=== PATIENT | male | born 1990 | race African-American/Black ===

== ENCOUNTER 2020-07-21 06:20 | Emergency (ER) | payer SELFPAY ==
[2020-07-21] MEDS ORDERED: NORMAL SALINE 1000 ML 1,000 ML IV ONE (06:36)
--- NOTE | 2020-07-21 06:38 | ER Document Report ---
ED Medical Screen (RME) - General Stated Complaint: INTOXICATION Time Seen by Provider: 07/21/20 06:32 Notes: 30-year-old male chief complaint of alcohol intoxication from drinking too much moonshine. Reportedly patient has been drinking since 10 PM last night and star mi passing out although there is no fall reported injury. EMS reports girlfriend called. Patient denies any complaints other than the intoxication, he states he "normally does not drink very much". He states he smokes marijuana but denies recreational drugs otherwise, denies any daily medications or medical history. No other complaints reported except he vomited a couple of times. Received Zofran and LR bolus from EMS. TRAVEL OUTSIDE OF THE [place] IN LAST 30 DAYS: No - Related Data Allergies/Adverse Reactions: No Known Allergies Allergy (Verified 01/30/15 13:21) Past Medical History - Immunizations Hx Diphtheria, Pertussis, Tetanus Vaccination: Yes Physical Exam - Vital signs Vitals: Temp Pulse Resp BP Pulse Ox 97.6 F 72 16 108/94 H 100 07/21/20 06:34 07/21/20 06:34 07/21/20 06:34 07/21/20 06:34 07/21/20 06:34 - General General appearance: Other - Patient smells of alcohol, drowsy, slurring speech, appears intoxicated but is still responsive and cooperative - Neurological Cognition: Inattentive Orientation: AAOx4. No: Disoriented to person, Disoriented to place, Disoriented to time, Disoriented to events [place]vin Coma Scale Eye Opening: Spontaneous [place] Coma Scale Verbal: Oriented [place]vin Coma Scale Motor: Obeys Commands Olvin Coma Scale Total: 15 Course - Re-evaluation Re-evalutation: I have greeted and performed a rapid initial assessment of this patient. A comprehensive ED assessment and evaluation of the patient, analysis of test results and completion of the medical decision making process will be conducted by additional ED providers. - Vital Signs Vital signs: Temp Pulse Resp BP Pulse Ox 97.6 F 72 16 108/94 H 100 07/21/20 06:34 07/21/20 06:34 07/21/20 06:34 07/21/20 06:34 07/21/20 06:34
[2020-07-21 07:14] LABS: ALBUMIN 4.6 g/dL (3.5-5.0); ALKALINE PHOSPHATASE 66 U/L (38-126); ANION GAP 14 (5-19); ASPARTATE AMINO TRANSFERASE 36 U/L (17-59); BILIRUBIN,DIRECT 0.1 mg/dL (0.0-0.4); BILIRUBIN,TOTAL 0.5 mg/dL (0.2-1.3); BLOOD UREA NITROGEN 15 mg/dL (7-20); CALCIUM 9.4 mg/dL (8.4-10.2); CARBON DIOXIDE 22 mmol/L (22-30); CHLORIDE 107 mmol/L (98-107); GLUCOSE 135 mg/dL (75-110); POTASSIUM 3.6 mmol/L (3.6-5.0); TOTAL PROTEIN 7.9 g/dL (6.3-8.2)
[2020-07-21 07:28] VITALS: BP 125/94
[2020-07-21] MEDS ORDERED: DEXTROSE 5%-LACTATED RINGERS 1,000 ML IV ONE (08:35)
[2020-07-21] MEDS ORDERED: METOCLOPRAMIDE HCL INJ/PF 10 MG/2 ML SDV IV ONE (08:37)
[2020-07-21] MEDS ORDERED: PANTOPRAZOLE SODIUM 40 MG VIAL IV ONE (08:37)
[2020-07-21 08:38] LABS: URINE AMPHETAMINES SCREEN NEGATIVE; URINE BARBITURATES SCREEN NEGATIVE; URINE BENZODIAZEPINES SCREEN NEGATIVE; URINE COCAINE SCREEN NEGATIVE; URINE METHADONE SCREEN NEGATIVE; URINE PHENCYCLIDINE SCREEN NEGATIVE
[2020-07-21 08:39] LABS: URINE MARIJUANA (THC) SCREEN UNCONFIRMED POSITIVE
[2020-07-21 08:49] LABS: ABSOLUTE LYMPHOCYTES (AUTO) 2.3 10^3/uL (0.5-4.7); ABSOLUTE MONOCYTES (AUTO) 0.6 10^3/uL (0.1-1.4); ABSOLUTE NEUT (AUTO) 6.8 10^3/uL (1.7-8.2); BASOPHILS % (AUTO) 0.3 % (0-2); EOSINOPHILS % (AUTO) 0.4 % (0-6); HEMATOCRIT 41.4 % (37.9-51.0); LYMPHOCYTES % (AUTO) 23.3 % (13-45); MEAN CORPUSCULAR HEMOGLOBIN 30.4 pg (27.0-33.4); MEAN CORPUSCULAR HGB CONC 33.7 g/dL (32.0-36.0); MEAN CORPUSCULAR VOLUME 90 fl (80-97); MONOCYTES % (AUTO) 6.3 % (3-13); PLATELET COUNT 183 10^3/uL (150-450); RED CELL DISTRIBUTION WIDTH 14.7 % (11.5-14.0); SEGMENTED NEUTROPHILS % (AUTO) 69.7 % (42-78); TOTAL CELLS COUNTED % (AUTO) 100 %; WHITE BLOOD COUNT 9.8 10^3/uL (4.0-10.5)
--- NOTE | 2020-07-21 10:20 | ER Document Report ---
Entered by GEORGE SEO SCRIBE 07/21/20 0815 Acting as scribe for:ABRAHAN NOVOA MD ED Substance Abuse / Acc. OD - General Chief Complaint: ETOH Abuse Stated Complaint: INTOXICATION Time Seen by Provider: 07/21/20 06:32 Mode of Arrival: Medic Information source: Patient, Emergency Med Personnel Notes: This 30 year old male patient presents to the ED via EMS with complaints of acute alcohol intoxication. Girlfriend at bedside reports that the patient drank moonshine around 2200 last night and had an episode of "pinkish-red phlemy" emesis at home. Patient states that he does not drink often. He reports a "stomach ache," but denies any other complaints. He received 8 mg Zofran and 500 ml bolus of LR via EMS. TRAVEL OUTSIDE OF THE [place] IN LAST 30 DAYS: No - Related Data Allergies/Adverse Reactions: No Known Allergies Allergy (Verified 01/30/15 13:21) Past Medical History - General Information source: Patient - Social History Smoking Status: Smoker,Current Status Unk Smoking Education Provided: No Frequency of alcohol use: Occasional Drug Abuse: Marijuana Family History: Reviewed & Not Pertinent - Immunizations Hx Diphtheria, Pertussis, Tetanus Vaccination: Yes Review of Systems - Review of Systems Constitutional: See HPI EENT: No symptoms reported Cardiovascular: No symptoms reported Respiratory: No symptoms reported Gastrointestinal: See HPI Genitourinary: No symptoms reported Male Genitourinary: No symptoms reported Musculoskeletal: No symptoms reported Skin: No symptoms reported Hematologic/Lymphatic: No symptoms reported Neurological/Psychological: No symptoms reported -: Yes All other systems reviewed and negative Physical Exam - Vital signs Vitals: Resp BP Pulse Ox 17 108/94 H 98 07/21/20 06:26 07/21/20 06:26 07/21/20 06:26 - Notes Notes: Patient is awake, alert, talking, and not actively vomiting; however, he is refusing to be examined at this time. Physical exam is therefore unobtainable. Course - Re-evaluation Re-evalutation: 07/21/20 10:13 Patient is awake talking not showing any signs of distress at this time. - Vital Signs Vital signs: Temp Pulse Resp BP Pulse Ox 97.6 F 72 20 125/94 H 100 07/21/20 06:34 07/21/20 06:34 07/21/20 07:00 07/21/20 07:00 07/21/20 07:00 07/21/20 10:14 Vital signs are stable however diastolic hypertension noted at 94. - Laboratory Result Diagrams: 07/21/20 07:20 07/21/20 06:35 Laboratory results interpreted by me: 07/21/20 07/21/20 06:35 07:20 RDW 14.7 H Glucose 135 H ALT 52 H 07/21/20 10:14 07/21/20 07:20 07/21/20 06:35 MCV 90 fl (80-97) 07/21/20 07:20 MCH 30.4 pg (27.0-33.4) 07/21/20 07:20 MCHC 33.7 g/dL (32.0-36.0) 07/21/20 07:20 RDW 14.7 % (11.5-14.0) H 07/21/20 07:20 Seg Neutrophils % 69.7 % (42-78) 07/21/20 07:20 Chloride 107 mmol/L (98-107) 07/21/20 06:35 Carbon Dioxide 22 mmol/L (22-30) 07/21/20 06:35 Anion Gap 14 (5-19) 07/21/20 06:35 Est GFR ( Amer) > 60 (>60) 07/21/20 06:35 Glucose 135 mg/dL (75-110) H 07/21/20 06:35 Calcium 9.4 mg/dL (8.4-10.2) 07/21/20 06:35 Magnesium 2.1 mg/dL (1.6-2.3) 07/21/20 07:20 Total Bilirubin 0.5 mg/dL (0.2-1.3) 07/21/20 06:35 AST 36 U/L (17-59) 07/21/20 06:35 Alkaline Phosphatase 66 U/L (38-126) 07/21/20 06:35 Total Protein 7.9 g/dL (6.3-8.2) 07/21/20 06:35 Albumin 4.6 g/dL (3.5-5.0) 07/21/20 06:35 Laboratory results shows an alcohol level in the 90s, and positive for marijuana on the urine drug screen. Patient's labs otherwise unremarkable. Patient's glucose is 135 with an ALT of 52. Discharge - Discharge Clinical Impression: Acute alcohol intoxication, Alcoholic gastritis, Elevated blood pressure today Condition: Stable Disposition: HOME, SELF-CARE Additional Instructions: Gastritis You have an inflammation of the stomach called gastritis. This commonly causes upper abdominal pain, nausea, and vomiting. In severe cases, bleeding of the stomach lining can occur. Gastritis can be caused by bacteria or viruses, alcohol, or stomach-irritating drugs. Begin with sips of clear liquids. Take increasing amounts of fluid over the first 24 hours. Then start small amounts of bland foods (such as dry toast, applesauce, mashed potato). Gradually resume your usual diet. You should take antacids every two hours until the pain has subsided. Acid-suppressing drugs may be prescribed as well. Avoid aspirin, caffeine, tobacco, and alcohol. If the abdominal pain worsens, or there is evidence of major bleeding in the stomach (such as black, tarry stool, bloody or black vomit, or lightheade dness), you should return immediately. Call the doctor if you aren't improved in 24 to 36 hours. Acute Alcohol Intoxication Your evaluation revealed very high levels of alcohol. You can from drinking a large amount of alcohol rapidly! Further, there's the risk of falls, traffic accidents, and fights. A high portion (about 50 percent) of the serious injuries seen in hospital emergency rooms are caused by alcohol. Alcohol overdosage is usually due to an underlying emotional or psychiatric problem. You may benefit from counselling. If "binge" drinking is an ongoing problem for you, or if you drink ANY AMOUNT of alcohol EVERY day, you most likely have a tendency to alcoholism. You should avoid alcohol totally. We can refer you for treatment. Persons with alcohol problems are often also prone to other addictions -- you should discuss any use of medications or drugs with the doctor. You should be watched at home for the next several hours by someone who has not been drinking. Get extra fluids for the next 24 hours. Call the doctor if there is repeated vomiting, increasing headache, decreasing level of alertness, or any other worsening. Prescriptions: Omeprazole 40 mg PO DAILY #30 capsule. Ondansetron [Zofran Odt 4 mg Tablet] 1 - 2 tab PO Q4H PRN #15 tab.rapdis PRN Reason: For Nausea/Vomiting Forms: Elevated Blood Pressure, Return to Work I personally performed the services described in the documentation, reviewed and edited the documentation which was dictated to the scribe in my presence, and it accurately records my words and actions.
== END 2020-07-21 11:00 | disposition home or self-care (01) ==
LOC: ER 06:20
DX: F10.129 Alcohol abuse with intoxication, unspecified (principal); Y90.4 Blood alcohol level of 80-99 mg/100 ml; K29.20 Alcoholic gastritis without bleeding; I10 Essential (primary) hypertension; R11.10 Vomiting, unspecified; F12.10 Cannabis abuse, uncomplicated
CPT/HCPCS: 99284; 96361; 96374; 96375; 36415; 80307 ×2; 83735; 85025; 80053; J2765; C9113; J7121; J7030